=== PATIENT | female | born 1995 | race Caucasian/White ===

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

== ENCOUNTER 2017-02-13 18:53 | Emergency (ER) | payer BC ==
[~2017-02-13] VITALS: Ht 167.6 cm; Wt 71.5 kg
[~2017-02-13 18:53] MED LIST changes: -EPP3/2 IM; +IBUP-103 PO; -IUD'IUD INT UTER; -OXYC-57 PO; -PRED20TA PO
[2017-02-13 18:58] VITALS: TEMP 36.8; Ht 167.6 cm; Wt 71.5 kg
[2017-02-13] MEDS ORDERED: DIAZEPAM 5MG TAB PO STA (19:30)
[2017-02-13] MEDS ORDERED: LAMO200T38 PO (19:31)
[2017-02-13 19:49] LABS: BASO % 0.3 %; BASO ABS # 0.02 K/uL (0-0.2); COMPLETE YES; EOS % 0.4 %; HEMATOCRIT 41.3 % (37-47); IG% 0.3 %; LYMPH % 7.6 %; LYMPH ABS # 0.57 K/uL (1.2-3.4); MEAN CELL VOLUME 87.5 fL (80-100); MEAN CORPUSCULAR HGB CONC 33.2 g/dl (32-36); MEAN PLATELET VOLUME 9.9 fL (7.4-10.4); MONO % 3.1 %; NEUT % 88.3 %; PLATELET COUNT 222 K/uL (130-400); RED BLOOD COUNT 4.72 M/uL (4.2-5.4); WHITE BLOOD COUNT 7.46 K/uL (4.8-10.8)
[2017-02-13 20:07] LABS: BUN/CREATININE RATIO 8.5 (10-20); CALCIUM 9.8 mg/dl (8.5-10.1); CREATININE 0.83 mg/dl (0.60-1.20); POTASSIUM 3.6 mmol/L (3.5-5.1)
[2017-02-13 20:10] LABS: ALB/GLOB RATIO 1.2 (0.9-2)
[2017-02-13] MEDS ORDERED: HYDROmorphone INJ 1 MG/ML SYR IV STA ×2 (20:14→21:18)
--- NOTE | 2017-02-13 20:46 | EMERGENCY ROOM VISIT NOTE ---
History First contact with patient: 19:03 Chief Complaint: BACK PAIN Stated Complaint: EXTREME LOW BACK PAIN History of Present Illness The patient is a 21 year old female who presents to the Emergency Room with complaints of back pain. The patient states that she was sitting in the library tonight when she had a sudden onset of throbbing back pain. She states the pain is severe and worse with flexion and extension of the back. She took Tylenol, ibuprofen and her muscle relaxers with no improvement. She rates her discomfort an 8/10. The patient has a history of T11 to T12 fracture in May of this year. She developed osteomyelitis 3 weeks later and had staph bacteremia. She was admitted at a hospital at home for 12 days then discharged with IV antibiotics through a PICC line. The patient reports that since then, she has had occasional flareups of her back pain. However, these are usually relieved by her muscle relaxers. She was seen at [facility] and sent here for further evaluation. She was told that she had a fever of 100.5F at [facility]. She denies any numbness/weakness of the legs, radiation of the pain, saddle anesthesias or bowel/bladder incontinence. Review of Systems A complete 10 point review of systems was reviewed with the patient with pertinent positives and negatives as per history of present illness. All else were negative. Past Medical/Surgical History Medical Problems: (1) Compression fracture of T12 vertebra (2) Osteomyelitis (3) Traumatic compression fracture of T11 thoracic vertebra Family History Cancer Diabetes mellitus Hypertension Social History Smoking Status: Never Smoker Drug Use: none Occupation Status: [employer] Current/Historical Medications Scheduled Iud's (Paragard Intrauterine Business Services Assistant), 1 EA INT UTER UD Lamotrigine (Lamictal), 200 MG PO DAILY Scheduled PRN Epinephrine (Epipen), 0.3 MG IM UD PRN for ALLERGIC REACTION Ibuprofen Tab (Advil), 600 MG PO BID PRN for Pain or Fever Oxycodone Ir (Roxicodone Ir), 1-2 TAB PO Q4H PRN for Pain Physical Exam Vital Signs Date Time Temp Pulse Resp B/P (MAP) Pulse Ox O2 Delivery O2 Flow Rate FiO2 02/13/17 23:48 79 16 123/71 96 Room Air 02/13/17 21:17 76 16 135/76 97 Room Air 02/13/17 18:58 36.8 92 20 141/93 99 Room Air Physical Exam VITALS: Vitals are noted on the nurse's note and reviewed by myself. Vital signs stable. GENERAL: This is a 21-year-old female, in no acute distress, nondiaphoretic, well-developed well-nourished. SKIN: The skin was without rashes. NECK: Supple without nuchal rigidity. HEART: Regular rate and rhythm without murmurs gallops or rubs. LUNGS: Clear to auscultation bilaterally without wheezes, rales or rhonchi. ABDOMEN: Positive bowel sounds x 4. Soft, nontender to palpation. MUSCULOSKELETAL: There is tenderness to palpation to the lower thoracic spinous processes and bilateral paraspinous muscles. The left thoracic paraspinous muscles are pronounced compared to the right and tender to palpation. Full range of motion of bilateral lower extremities. Strength 5/5. NEURO: Patient was alert and oriented to person place and time. Normal sensation to light and sharp touch. Deep tendon reflexes 2+ throughout. Medical Decision & Procedures ER Provider Diagnostic Interpretation: THORACIC SPINE COMBO CLINICAL HISTORY: 21 years-old Female presenting with severe back pain, possible fever, hx osteo at t11-12. TECHNIQUE: Multisequence, multiplanar MR imaging of the thoracic spine was performed before and after the administration of intravenous contrast. IV contrast: 7 mL of Gadavist. COMPARISON: CT from 12/20/2016. FINDINGS: Localizer images: Unremarkable. Normal thoracic kyphosis with the exception of a focal kyphotic deformity at T12. T1 hypointense, T2 hypointense marrow signal along the superior endplate of T12 suggests sclerosis, consistent with old compression fracture. No retropulsion of fracture fragments. Minimal resulting small disc bulge at T11-12 minimally effaces the ventral thecal sac without significant result. No significant neural foraminal narrowing. No significant fluid within the T11-12 disc space. The T11-12 disc space mildly enhances peripherally on postcontrast imaging, likely in part from granulation tissue. Focal erosion or Schmorl's node noted at the inferior endplate of T11, unchanged since prior CT. Vertebral bodies otherwise maintain normal height, alignment, and bone marrow signal intensity. Spinal cord maintains normal morphology and signal intensity throughout the thoracic spine. No abnormal enhancement of the spinal cord. No paraspinal inflammatory changes or focal fluid collection. No epidural collection. IMPRESSION: 1. Chronic compression fracture of T12. No evidence of acute osseous injury or discitis osteomyelitis. 2. No significant spinal canal or neural foraminal narrowing. Laboratory Results 02/13/17 19:39 Red Blood Count 4.72, Mean Corpuscular Volume 87.5, Mean Corpuscular Hemoglobin 29.0, Mean Corpuscular Hemoglobin Concent 33.2, Mean Platelet Volume 9.9, Neutrophils (%) (Auto) 88.3, Lymphocytes (%) (Auto) 7.6, Monocytes (%) (Auto) 3.1, Eosinophils (%) (Auto) 0.4, Basophils (%) (Auto) 0.3, Neutrophils # (Auto) 6.59, Lymphocytes # (Auto) 0.57, Monocytes # (Auto) 0.23, Eosinophils # (Auto) 0.03, Basophils # (Auto) 0.02 02/13/17 19:39 Test 02/13/17 19:39 02/13/17 21:04 White Blood Count 7.46 K/uL (4.8-10.8) Red Blood Count 4.72 M/uL (4.2-5.4) Hemoglobin 13.7 g/dL (12.0-16.0) Hematocrit 41.3 % (37-47) Mean Corpuscular Volume 87.5 fL (80-100) Mean Corpuscular Hemoglobin 29.0 pg (25-34) Mean Corpuscular Hemoglobin Concent 33.2 g/dl (32-36) Platelet Count 222 K/uL (130-400) Mean Platelet Volume 9.9 fL (7.4-10.4) Neutrophils (%) (Auto) 88.3 % Lymphocytes (%) (Auto) 7.6 % Monocytes (%) (Auto) 3.1 % Eosinophils (%) (Auto) 0.4 % Basophils (%) (Auto) 0.3 % Neutrophils # (Auto) 6.59 K/uL (1.4-6.5) Lymphocytes # (Auto) 0.57 K/uL (1.2-3.4) Monocytes # (Auto) 0.23 K/uL (0.11-0.59) Eosinophils # (Auto) 0.03 K/uL (0-0.5) Basophils # (Auto) 0.02 K/uL (0-0.2) RDW Standard Deviation 42.7 fL (36.4-46.3) RDW Coefficient of Variation 13.3 % (11.5-14.5) Immature Granulocyte % (Auto) 0.3 % Immature Granulocyte # (Auto) 0.02 K/uL (0.00-0.02) Erythrocyte Sedimentation Rate 13 mm/hr (0-21) Anion Gap 10.0 mmol/L (3-11) Est Creatinine Clear Calc Drug Dose 110.4 ml/min Estimated GFR () 118.5 Estimated GFR (Non- 102.2 BUN/Creatinine Ratio 8.5 (10-20) Calcium Level 9.8 mg/dl (8.5-10.1) Total Bilirubin 0.3 mg/dl (0.2-1) Aspartate Amino Transf (AST/SGOT) 16 U/L (15-37) Alanine Aminotransferase (ALT/SGPT) 22 U/L (12-78) Alkaline Phosphatase 81 U/L (45-117) C-Reactive Protein 0.64 mg/dl (0-0.29) Total Protein 9.0 gm/dl (6.4-8.2) Albumin 4.8 gm/dl (3.4-5.0) Globulin 4.2 gm/dl (2.5-4.0) Albumin/Globulin Ratio 1.2 (0.9-2) Urine Color YELLOW Urine Appearance CLEAR (CLEAR) Urine pH 8.0 (4.5-7.5) Urine Specific Otho 1.007 (1.000-1.030) Urine Protein NEG (NEG) Urine Glucose (UA) NEG (NEG) Urine Ketones TRACE (NEG) Urine Occult Blood TRACE (NEG) Urine Nitrite NEG (NEG) Urine Bilirubin NEG (NEG) Urine Urobilinogen NEG (NEG) Urine Leukocyte Esterase NEG (NEG) Urine WBC (Auto) 1-5 /hpf (0-5) Urine RBC (Auto) 0-4 /hpf (0-4) Urine Hyaline Casts (Auto) 0 /lpf (0-5) Urine Epithelial Cells (Auto) 10-20 /lpf (0-5) Urine Bacteria (Auto) NEG (NEG) Medications Administered Medications (Trade) Dose Ordered Sig/Ricardo Route Start Time Stop Time Status Last Admin Dose Admin Diazepam (Valium Tab) 10 mg NOW STAT PO 02/13/17 19:30 02/13/17 19:31 DC 02/13/17 20:03 10 MG Hydromorphone HCl (Dilaudid Inj) 1 mg NOW STAT IV 02/13/17 20:14 02/13/17 20:15 DC 02/13/17 20:39 1 MG Hydromorphone HCl (Dilaudid Inj) 1 mg NOW STAT IV 02/13/17 21:18 02/13/17 21:19 DC 02/13/17 21:24 1 MG Ketorolac Tromethamine (Toradol Inj) 30 mg NOW STAT IV 02/13/17 23:16 02/13/17 23:18 DC 02/13/17 23:16 30 MG Hydromorphone HCl (Dilaudid Inj) 1 mg NOW STAT IV 02/14/17 00:16 02/14/17 00:17 DC 02/14/17 00:22 1 MG ED Course The patient was evaluated as above. Labs were drawn and IV access was obtained. Patient was medicated with 10 mg Valium. Patient was reevaluated and stated she had no relief with the Valium. 1 mg Dilaudid was ordered. Patient states that her pain has returned and is again a 10/10. An additional dose of Dilaudid was ordered. MRI of the thoracic spine was performed and read by radiology as above. Patient was reevaluated and findings were discussed. The patient states that she is still in pain and did request an additional dose of pain medication before she is discharged. The patient was given 1 mg Dilaudid IV. Discharge instructions were reviewed with the patient. The patient verbalized understanding of my assessment and treatment plan and was discharged home in good condition. Medical Decision Differential diagnosis includes cauda equina syndrome, cord compression, disc herniation, muscle spasm, lumbar strain, epidural abscess, malignancy, transverse myelitis, urinary tract infection, colitis, diverticulitis, kidney stone, among others. The patient is a 21-year-old female with past medical history significant for osteomyelitis of T11 to T12 who presents today complaining of severe back pain which began today. The patient is afebrile, although he does report a fever when she was seen at [facility] prior to arrival here. Labs revealed no leukocytosis. Sedimentation rate and CRP were not found to be significantly elevated. MRI of the thoracic spine with and without contrast was performed due to the patient's history of osteomyelitis. This was read by radiology and shows a chronic compression fracture with no acute findings and no evidence of osteomyelitis. The patient did require multiple doses of IV pain medication. She will be given a short course of narcotic pain medication at home. I had a very lengthy discussion with the patient regarding her ongoing back problems. The patient has evidently seen multiple specialists and has tried physical therapy locally which did not seem to work for her. She has seen chiropractors and massage therapists. I did recommend that the patient see an orthopedic spine surgeon locally and she was given information for one. Conservative measures were discussed with the patient. She has worsening or new /concerning symptoms. Otherwise, she will follow-up with her own spine surgeon as well as orthopedic spine locally. The patient's case was reviewed with Dr. Hutson, ED attending physician, who agreed with my assessment and treatment plan. [facility] Drug Monitoring Program Search Results: patient reviewed within database Medication Reconcilliation Current Medication List: was personally reviewed by me Blood Pressure Screening Patient's blood pressure: Elevated blood pressure Blood pressure disposition: Elevated BP felt to be situational Impression Primary Impression: Thoracic back pain Departure Information Dispostion Home / Self-Care Condition GOOD Prescriptions Oxycodone Ir (Roxicodone Ir) 5 Mg Tab 1-2 TAB PO Q4H Y for Pain, #20 TAB For Initial Treatment Prov: Bonita Rascon PA-C 02/14/17 Referrals No Doctor, Assigned (PCP) Kem Bauer, DO Patient Instructions My [facility] Additional Instructions You have been treated in the Emergency Department for Back Pain. You have received pain medicine in the emergency department which impairs your ability to operate a vehicle. It is illegal for you to drive after receiving these medicines. MRI showed a chronic compression fracture of T12 with no evidence of osteomyelitis or other acute findings. You have been prescribed OxyIR to be used for pain control. This is a narcotic medication. You cannot drive or consume alcohol while on this medicine. This medicine should only be used for pain that cannot be controlled with over-the- counter pain medicines. For pain control, you can use the following [id number] medicines (if >12 yo): - Regular strength (325mg/tab) Tylenol (acetaminophen) 2 tabs every 4-6 hours as needed. Do not exceed 12 tablets in a 24 hour period. Avoid taking more than 4 grams (4000 mg) of Tylenol per day. This includes any other sources of acetaminophen you may take on a regular basis. - Regular strength (200 mg/tab) Advil (ibuprofen) 1-2 tabs every 4-6 hours as needed. Do not exceed a dose of 3200 mg per day. Scheduled follow-up with Dr. Bauer. Return to the Emergency Department if your current symptoms worsen despite treatment course outlined above, or if you develop any of the following symptoms : intractable pain despite aforementioned treatment course, loss of control of your bowel or bladder, numbness or tingling in your groin, or development of a fever. Problem Qualifiers Primary Impression: Thoracic back pain Chronicity: chronic Back pain laterality: midline Qualified Codes: M54.6 - Pain in thoracic spine; G89.29 - Other chronic pain
[2017-02-13 21:23] LABS: URINE APPEARANCE CLEAR (CLEAR); URINE BILIRUBIN NEG (NEG); URINE COLOR YELLOW; URINE NITRITE NEG (NEG); URINE SPECIFIC GRAVITY 1.007 (1.000-1.030); UROBILINOGEN NEG (NEG); ZZUR CULT IF INDIC CLEAN CATCH NO
[2017-02-13 21:24] LABS: MANUAL MICROSCOPIC REQUIRED? NO; REVIEW REQ? NO
[2017-02-13] MEDS ORDERED: GADAVIST IV PRN (22:45)
[2017-02-13] MEDS ORDERED: IUD'IUD INT UTER (22:51)
[2017-02-13] MEDS ORDERED: EPP3/2 IM (22:58)
[2017-02-13] MEDS ORDERED: KETOROLAC TROMETHAMINE 30 MG/ML VIAL IV STA (23:16)
[2017-02-13 23:48] VITALS: BP 123/71; PULSE 79; O2SAT 96
--- NOTE | 2017-02-14 | DIAGNOSTIC IMAGING REPORT ---
THORACIC SPINE COMBO CLINICAL HISTORY: 21 years-old Female presenting with severe back pain, possible fever, hx osteo at t11-12. TECHNIQUE: Multisequence, multiplanar MR imaging of the thoracic spine was performed before and after the administration of intravenous contrast. IV contrast: 7 mL of Gadavist. COMPARISON: CT from 12/20/2016. FINDINGS: Localizer images: Unremarkable. Normal thoracic kyphosis with the exception of a focal kyphotic deformity at T12. T1 hypointense, T2 hypointense marrow signal along the superior endplate of T12 suggests sclerosis, consistent with old compression fracture. No retropulsion of fracture fragments. Minimal resulting small disc bulge at T11-12 minimally effaces the ventral thecal sac without significant result. No significant neural foraminal narrowing. No significant fluid within the T11-12 disc space. The T11-12 disc space mildly enhances peripherally on postcontrast imaging, likely in part from granulation tissue. Focal erosion or Schmorl's node noted at the inferior endplate of T11, unchanged since prior CT. Vertebral bodies otherwise maintain normal height, alignment, and bone marrow signal intensity. Spinal cord maintains normal morphology and signal intensity throughout the thoracic spine. No abnormal enhancement of the spinal cord. No paraspinal inflammatory changes or focal fluid collection. No epidural collection. IMPRESSION: 1. Chronic compression fracture of T12. No evidence of acute osseous injury or discitis osteomyelitis. 2. No significant spinal canal or neural foraminal narrowing. Electronically signed by: Blair Mares M.D. 02/13/2017 11:58 PM Dictated Date/Time: 02/13/2017 11:52 PM
[2017-02-14] MEDS ORDERED: HYDROmorphone INJ 1 MG/ML SYR IV STA (00:16)
[2017-02-14] MEDS ORDERED: OXYC1TAB3 PO (00:19)
== END 2017-02-14 00:30 | disposition home or self-care (01) ==
LOC: C.EDB 18:53 → C.EDA 02-14 00:30
DX: M54.6 Pain in thoracic spine (principal); G89.29 Other chronic pain; Z87.81 Personal history of (healed) traumatic fracture; Z83.3 Family history of diabetes mellitus; Z82.49 Family history of ischemic heart disease and other diseases of the circulatory system